=== PATIENT | female | born 1940 | race Caucasian/White ===

== ENCOUNTER 2018-04-09 13:55 | Inpatient (IN) | payer MEDICARE, OTHER ==
[2018-04-09 15:02] LABS: #Basophils 0.1 thou/uL (0.0-0.2); #Eosinphils 0.1 thou/uL (0.0-0.7); #Lymphocytes 2.1 thou/uL (1.20-3.40); #Monocytes 0.8 thou/uL (0.11-0.59); #Neutrophils 9.1 thou/uL (1.40-6.50); %Basophils 1.1 % (0.0-1.0); %Eosinophils 0.5 % (0.0-10.0); %Lymphocytes 17.2 % (21.0-51.0); %Monocytes 6.6 % (0.0-10.0); %Neutrophils 74.6 % (42.0-75.0); Hemoglobin 13.9 g/dL (12.0-16.0); Mean Corpuscular HGB CONC 32.7 g/dL (32.0-36.0); Mean Corpuscular Hemoglobin 30.1 pg (27.0-31.0); Mean Corpuscular Volume 91.8 fL (78.0-98.0); Mean Platelet Volume 6.1 fL (7.4-10.4); Platelet Count 464 thou/uL (130-400); Red Blood Cell (RBC) Count 4.63 mill/uL (4.20-5.40); White Blood Cell (WBC) Count 12.2 thou/uL (4.8-10.8)
[2018-04-09 15:05] LABS: Bacteria/HPF Rare-Few HPF (None Seen); Bilirubin Negative (Negative); Blood, Urine Negative (Negative); Clarity Hazy (Clear); Glucose, Urine (Dipstick) Negative (Negative); Leukocyte Negative (Negative); Nitrite Negative (Negative); Protein, Urine (Dipstick) 30 mg/dL (Neg-Trace); RBC/HPF 0-3 HPF (0-3); Specific Gravity, Urine 1.015 (1.005-1.030); Squamous Epithelial 0-3 HPF (0-3); Urobilinogen 0.2 mg/dL (0.2-1.0); WBC/HPF 0-3 HPF (0-3); pH, Urine 5.5 (5.0-9.0)
[2018-04-09 15:13] LABS: ALT (SGPT) 19 U/L (8-55); AST (SGOT) 18 U/L (5-34); Albumin 4.4 g/dL (3.4-4.8); Alkaline Phosphatase 62 U/L (40-150); Anion Gap 17 mmol/L (10-20); BUN (Urea Nitrogen) 9 mg/dL (9.8-20.1); Bilirubin, Total 0.5 mg/dL (0.2-1.2); Calc. Creatinine Clearance 0 mL/min (70-130); Calcium 9.6 mg/dL (7.8-10.44); Carbon Dioxide 26 mmol/L (23-31); Chloride 98 mmol/L (98-107); Estimated GFR-MDRD 62; Globulin 2.9 g/dL (2.4-3.5); Glucose 188 mg/dL (83-110); Potassium 3.6 mmol/L (3.5-5.1); Protein, Total 7.3 g/dL (6.0-8.3); Sodium 137 mmol/L (136-145)
--- NOTE | 2018-04-09 15:23 | CT ---
CT OF BRAIN PERFORMED WITHOUT CONTRAST ENHANCEMENT: Date: 04/09/18 HISTORY: Altered mental status. COMPARISON: 04/28/11 exam. FINDINGS: There is generalized ventricular and sulcal prominence with decreased attenuation to the periventricu lar white matter consistent with some chronic white matter change. No signs for intracerebral hemorrh age or extra-axial fluid collections. Mastoid air cells and visualized sinuses are clear. IMPRESSION: No acute intracranial abnormalities. POS: [facility]
--- NOTE | 2018-04-09 15:50 | RAD ---
SINGLE VIEW CHEST: Date: 04/09/18 COMPARISON: 07/15/11. HISTORY: Altered mental status. FINDINGS: Single view of the chest shows normal sized cardiomediastinal silhouette with atherosclerotic calcifi cations in the aorta. There is no evidence of consolidation, mass, or pleural effusion. IMPRESSION: No evidence of acute cardiopulmonary disease. POS: [facility]
[2018-04-09] MEDS ORDERED: Acetaminophen 325 MG TAB ONE (16:07)
[2018-04-09 17:59] VITALS: BMI 17.6
[2018-04-09] MEDS ORDERED: ALPRAZolam 0.25 MG TAB PO PRN (18:44)
[2018-04-09] MEDS: Pravastatin Sodium 20 MG TAB PO SCH (20:43)
[2018-04-09] MEDS: Latanoprost 0.005% Ophth Soln 2.5 ml Bottle EA EYE SCH (20:44)
[2018-04-09] MEDS: Acetaminophen 325 MG TAB PO PRN (22:29)
[2018-04-10] MEDS: Acetaminophen 325 MG TAB PO PRN ×2 (05:01→09:57)
[2018-04-10] MEDS: Levothyroxine Sodium 50 MCG TAB PO SCH (05:01)
[2018-04-10] MEDS: Amlodipine 5 MG TAB PO SCH (08:03)
[2018-04-10] MEDS: COMPLETE MULTIVITAMIN PO SCH (08:04)
[2018-04-10] MEDS: SLO NIACIN 500 MG PO SCH (08:04)
[2018-04-10] MEDS: I CAPS PO SCH (08:04)
[2018-04-10] MEDS: Timolol 0.5% Ophth Soln 5 ml Bottle EA EYE SCH (08:09)
[2018-04-10] MEDS ORDERED: Loratadine 10 MG TAB PO SCH ×2 (10:00→13:00)
[2018-04-10] MEDS: Pravastatin Sodium 20 MG TAB PO SCH (20:02)
[2018-04-10] MEDS: traZODone HCl 50 MG TAB PO SCH (20:03)
[2018-04-10] MEDS: Latanoprost 0.005% Ophth Soln 2.5 ml Bottle EA EYE SCH (20:06)
--- NOTE | 2018-04-11 02:12 | HP ---
PRIMARY CARE PHYSICIAN: Alvina Bob MD REASON FOR ADMISSION: Altered mental status, worsening dementia, unsafe living condition. HISTORY OF PRESENT ILLNESS AND HOSPITAL COURSE: Ms. Thompson is an 78-year-old female with significant history of hypertension, mixed lipidemia, hypothyroidism, history of stroke, anxiety, and mild cognitive impairment with memory loss. Son reports that the patient has been having confusion notably at nighttime. The patient lives by herself in [place]. She resides in the same house for a total of 20 years. She has a significant support system from her older sisters and other friends nearby. The patient has been living independently for more than 10 years since her spouse . Son noticed that since the patient has had stroke in May 2011, memory has gradually been worsening per son. Reports forgetfulness on and off without significant behavioral disturbances nor complications. Her older sister, Rhonda Puentes who lives nearby is the patient's main support system at the present since their oldest sister had . Ms Puentes drives her to the clinic and reminds of her medications every now and then. Ms Puentes had a recent fall at home and she sustained a fracture requiring repair. Ms Puentes had underwent surgery. Ms Puentes is currently in skilled rehab in [place]. Since the sister has been in the hospital, the patient has been calling the son mostly at night, panicky, crying, and with some confusion. After reassurance, the patient does okay, relaxes, and able to sleep well. However, lately for the past week or so, the patient has been doing it more frequently and has been calling the son more frequently almost every night. The son brought the patient in the clinic a couple of days ago for further evaluation of dementia. On her last clinic visit on 04/05/2018, the patient's MMSE showed 26/30. Further neuro eval was offered but son opted out as he lives out of town and has no time to dedicate on this. Son requested for a trial of medical therapy instead. Son reported that he is trying to start fixing the patient's resources to be able apply for possible placement. Patient was started on Namenda 5 mg p.o. daily. The patient has started the new medication and was only on her first 2 doses, when the patient called back her son, Cesar last night, very confused. The son reports that patient was again very confused, fearful,panicky and crying The patient reports that she just got out of bed in the middle of the night to go potty, but then could not find her way going back to her bedroom. Again, the patient lives in the same place of residence for the last 20 years and never had a problem. Son drove back to [place] and sent patient to [place] ER for further evaluation. From the ER, CT scan was unremarkable. Chest x-ray has no acute cardiopulmonary process. She has a mild leukocytosis of 12.2 with platelet counts of 464. BUN 9, creatinine 0.88, and glucose 188. Troponin less than 0.10.TSH 3.01. Albumin 4.4. Urine, protein high and ketones high, but negative microscopic hematuria nor pyuria or bacteriuria. The patient was very paranoid to go back home by herself due to confusion. Son will not be able to provide 24/7 care for the patient, thus decided for possible prison placement. The patient was admitted for further observation of confusion. She was placed next to her sister's room. Patient is happy about this. Upon admission, the patient reported headache. Otherwise, she has an unremarkable overnight stay. When seen this morning, the patient reports nasal congestion with sinus pressure headache. She states that she cannot tolerate nasal spray. She also reports that she only slept partially last night. She reports that she got up in the middle of the night and could not get back to sleep. Otherwise, nursing staff reports no behavioral disturbances noted. Of note, the patient has history of anxiety and she was previously on anxiolytic. She had a prescription of Xanax, but she never used it at all because she is so confused of her medicine and could not tell which one that needs to be taken for such reason. PAST MEDICAL HISTORY: Hypertension, hyperlipidemia, hypothyroidism, intracerebral bleed in May 2011, glaucoma, macular degeneration, vitamin D deficiency, diverticulitis, stable lung nodule, anxiety, and allergic rhinitis. ALLERGIES: NKDA. PAST SURGICAL HISTORY: Tonsillectomy in 2; cataract surgery, unknown date; hospitalization for stroke secondary to intracerebral bleed on 04/27/2011, since then, the patient had not had antithrombotic use at all. SOCIAL HISTORY: The patient is the youngest of 5 sisters , lives by herself in [facility], again with good support system from friends and spiritism mates and her main regulatory compliance manager is Cesar, the son and her sister , Rhonda Griffiths. FAMILY HISTORY: Alzheimer's in 2 sisters. Mother of cancer, unknown type. Father of cancer, unknown type. CURRENT MEDICATIONS: 1. Levothyroxine 50 mcg p.o. daily. 2. Amlodipine 10 mg p.o. daily. 3. Slo-Niacin 500 mg ER. 4. Pravastatin 40 mg p.o. daily. 5. Tylenol Extra Strength 500 mg p.o. q.6 hours p.r.n. 6. Multivitamins one tablet daily. 7. Latanoprost 0.005% solution, one drop in each eye nightly. 8. Timolol 0.5% ophthalmic solution, one drop in each eye q.a.m. 9. Alprazolam 0.25 mg p.o. q.6 hours p.r.n. REVIEW OF SYSTEMS: GENERAL: The patient denies fever, chills, or malaise. Reports general weakness. No loss of appetite. HEENT: No acute visual changes or hearing changes. Reports sinus pressure headaches and intermittent sneezing and runny nose/nasal congestion. CARDIAC: Denies chest pain, palpitations, syncope, RANKIN, or PND. RESPIRATORY: No shortness of breath, cough, wheezing, pain with breathing, sputum production, chronic cough. GENITOURINARY: No dysuria, hematuria, frequency, or urgency. Reports intermittent incontinence secondary to leakage. MUSCULOSKELETAL: No acute joint pain, swelling, or stiffness. SKIN: No rashes. No lesions. No ulcers. NEUROLOGIC: No new motor or sensory losses or acute loss of coordination. Positive for memory confusion. HEMATOLOGY: Reports easy bruising. No active bleeding. PSYCHIATRIC: Denies suicidal thoughts, plans, ideations, attempts or hallucinations. Reports some sleeping issues, confusion, anxiety. PHYSICAL EXAMINATION: VITAL SIGNS: Blood pressure 133/58, temperature 98.2, pulse 61, respirations 20 ,and O2 saturations 99%. Height 5 feet 6 inches. Weight 108 pounds and 14 ounces. GENERAL: The patient is awake, alert, oriented x2, a little bit off in her date ,answers simple questions with appropriateness, comfortable, not in acute distress. HEENT: Normocephalic and atraumatic. PERRL. Intact EOM. No nystagmus. Nonicteric sclerae. No eye discharge. Positive congestion. Boggy nasal mucosa. No sinus tenderness. Oropharynx is pink. No exudates. Oral mucosa is moist. No oral lesions or ulcers. NECK: Supple. No LAD. Flat JVD. No thyromegaly. No carotid bruit. CHEST: Normal excursion. Clear to auscultation. Nonlabored breathing. CARDIAC: RRR. Normal S1 and S2. No murmurs. ABDOMEN: Flat and soft. Normoactive bowel sounds. Nondistended, nontender. No rebound. No guarding. Negative CVA tenderness bilaterally. EXTREMITIES: Thin. No edema. No cyanosis. No clubbing. NEUROLOGIC: Nonfocal. DTRs 2+. Gait with unsteadiness. Does not use assistive device for ambulation. PSYCHIATRIC: Good eye contact, interactive, appropriate mood and affect. SKIN: Intact. No bruises. No ulcers. ASSESSMENT AND PLAN: 1. Altered mental status/confusion. 2. Worsening dementia. 3. Anxiety. 4. Adult failure to thrive with body mass index of 17. 5. Hypertension. 6. Hypothyroidism. 7. Hyperlipidemia. 8. Glaucoma. 9. Macular degeneration. 10. Allergic rhinitis. 11. Chronic kidney disease, stage 2. 12. Deconditioning and general weakness.. 13. Social issues/possible prison placement 14. History of intracerebral bleed in 2011. The patient is admitted to Med/Surg for further observation of confusion/ altered mental status. At this point, the patient appears to be at baseline mental state. We will continue all her current medications as modified per list. We will start on trazodone 50 mg p.o. nightly p.r.n. To continue Namenda and titrate appropriately for therapeutic dose.Start on oral antihistamine. Patient reports intolerance to nasal spryas. PT and OT evaluation, treat if appropriate. SCD prophylaxis with compression stockings. Refer to dietitian for nutritional supplements. Further recommendations depending on the hospital course. ESTIMATED STAY: Three nights. DISPOSITION: Lengthy discussion with son, Cesar, who acts as the surrogate decision maker for the patient/MPOA. The son reports possible prison as the patient needs constant supervision and reminders. Her son prefers to have either [place] or [facility]. We will refer to social media strategist and coordinate with the family for the appropriate placement. The patient is agreeable to the plan. She admits that she cannot live by herself as she easily gets confused and panicky and could not think right. CODE STATUS: The patient reports DNR. This was confirmed with the son/Cesar by phone discussion today. Job ID: [id number] MTDD
[2018-04-11] MEDS: Levothyroxine Sodium 50 MCG TAB PO SCH (06:01)
[2018-04-11] MEDS: COMPLETE MULTIVITAMIN PO SCH (08:59)
[2018-04-11] MEDS: I CAPS PO SCH (09:00)
[2018-04-11] MEDS: SLO NIACIN 500 MG PO SCH (09:00)
[2018-04-11] MEDS: Loratadine 10 MG TAB PO SCH (09:01)
[2018-04-11] MEDS: Amlodipine 5 MG TAB PO SCH (09:02)
[2018-04-11] MEDS: Timolol 0.5% Ophth Soln 5 ml Bottle EA EYE SCH (09:03)
[2018-04-11] MEDS: Pravastatin Sodium 20 MG TAB PO SCH (20:15)
[2018-04-11] MEDS: Latanoprost 0.005% Ophth Soln 2.5 ml Bottle EA EYE SCH (20:16)
[2018-04-11] MEDS: traZODone HCl 50 MG TAB PO SCH (22:35)
[2018-04-12] MEDS: Levothyroxine Sodium 50 MCG TAB PO SCH (05:27)
[2018-04-12] MEDS: Acetaminophen 325 MG TAB PO PRN (07:26)
[2018-04-12] MEDS: Loratadine 10 MG TAB PO SCH (08:44)
[2018-04-12] MEDS: COMPLETE MULTIVITAMIN PO SCH (08:45)
[2018-04-12] MEDS: Amlodipine 5 MG TAB PO SCH (08:45)
[2018-04-12] MEDS: I CAPS PO SCH (08:46)
[2018-04-12] MEDS: SLO NIACIN 500 MG PO SCH (08:46)
[2018-04-12] MEDS: Timolol 0.5% Ophth Soln 5 ml Bottle EA EYE SCH (08:47)
[2018-04-12] MEDS ORDERED: Mag-Al 1200 mg/1200 mg/30 ML UDCUP PO PRN (09:02)
[2018-04-12] MEDS: Latanoprost 0.005% Ophth Soln 2.5 ml Bottle EA EYE SCH (20:30)
[2018-04-12] MEDS: Pravastatin Sodium 20 MG TAB PO SCH (20:31)
[2018-04-12] MEDS: traZODone HCl 50 MG TAB PO SCH (20:31)
[2018-04-13] MEDS: Levothyroxine Sodium 50 MCG TAB PO SCH (05:45)
[2018-04-13 07:53] VITALS: BP 125/59; TEMP 98.3
[2018-04-13] MEDS: I CAPS PO SCH (08:20)
[2018-04-13] MEDS: SLO NIACIN 500 MG PO SCH (08:20)
[2018-04-13] MEDS: COMPLETE MULTIVITAMIN PO SCH (08:20)
[2018-04-13] MEDS: Loratadine 10 MG TAB PO SCH (08:21)
[2018-04-13] MEDS: Timolol 0.5% Ophth Soln 5 ml Bottle EA EYE SCH (08:21)
[2018-04-13] MEDS: Amlodipine 5 MG TAB PO SCH (08:21)
== END 2018-04-13 10:32 | disposition swing bed (61) | DRG 948 ==
LOC: MADERS 13:55 → MADMS 16:52
PROVIDERS: ADMIT Family Medicine; ATTEND Family Medicine
DX: R41.82 Altered mental status, unspecified (principal); Z68.1 Body mass index [BMI] 19.9 or less, adult; F03.90 Unspecified dementia, unspecified severity, without behavioral disturbance, psychotic disturbance, mood disturbance, and anxiety; Z66 Do not resuscitate; E03.9 Hypothyroidism, unspecified; F41.9 Anxiety disorder, unspecified; H40.9 Unspecified glaucoma; E55.9 Vitamin D deficiency, unspecified; R62.7 Adult failure to thrive; R53.1 Weakness; R53.81 Other malaise; I12.9 Hypertensive chronic kidney disease with stage 1 through stage 4 chronic kidney disease, or unspecified chronic kidney disease; E78.5 Hyperlipidemia, unspecified; H35.30 Unspecified macular degeneration; J30.9 Allergic rhinitis, unspecified; N18.2 Chronic kidney disease, stage 2 (mild); Z86.73 Personal history of transient ischemic attack (TIA), and cerebral infarction without residual deficits; Z90.89 Acquired absence of other organs; Z98.49 Cataract extraction status, unspecified eye
CPT/HCPCS: 51701; 70450; 71045; 80053; 81003; 81015; 84443; 84484; 85025; 87086; A4353

== ENCOUNTER 2018-04-13 10:23 | Inpatient (IN) | payer MEDICARE, OTHER ==
[2018-04-13] MEDS ORDERED: Mag-Al 1200 mg/1200 mg/30 ML UDCUP PO PRN (11:57)
[2018-04-13] MEDS ORDERED: ALPRAZolam 0.25 MG TAB PO SCH (12:00)
[2018-04-13] MEDS: Latanoprost 0.005% Ophth Soln 2.5 ml Bottle EA EYE SCH (21:26)
[2018-04-13] MEDS: Pravastatin Sodium 20 MG TAB PO SCH (21:26)
[2018-04-13] MEDS: traZODone HCl 50 MG TAB PO SCH (21:27)
[2018-04-14] MEDS: Levothyroxine Sodium 50 MCG TAB PO SCH (05:26)
[2018-04-14] MEDS: Amlodipine 5 MG TAB PO SCH (09:01)
[2018-04-14] MEDS: Niacin SR 500 MG CAP PO SCH (09:01)
[2018-04-14] MEDS: Loratadine 10 MG TAB PO SCH (09:02)
[2018-04-14] MEDS: Vit A,C & E/Lutein/Minerals Tablet PO SCH (09:02)
[2018-04-14] MEDS: Timolol 0.5% Ophth Soln 5 ml Bottle EA EYE SCH (09:02)
[2018-04-14] MEDS: Acetaminophen 325 MG TAB PO PRN (09:05)
[2018-04-14] MEDS: Latanoprost 0.005% Ophth Soln 2.5 ml Bottle EA EYE SCH (21:24)
[2018-04-14] MEDS: Pravastatin Sodium 20 MG TAB PO SCH (21:24)
[2018-04-14] MEDS: traZODone HCl 50 MG TAB PO SCH (21:25)
[2018-04-15] MEDS: Levothyroxine Sodium 50 MCG TAB PO SCH (05:22)
[2018-04-15] MEDS: Niacin SR 500 MG CAP PO SCH (08:24)
[2018-04-15] MEDS: Vit A,C & E/Lutein/Minerals Tablet PO SCH (08:24)
[2018-04-15] MEDS: Loratadine 10 MG TAB PO SCH (08:24)
[2018-04-15] MEDS: Amlodipine 5 MG TAB PO SCH (08:24)
[2018-04-15] MEDS: Timolol 0.5% Ophth Soln 5 ml Bottle EA EYE SCH (08:25)
[2018-04-15] MEDS: Pravastatin Sodium 20 MG TAB PO SCH (21:02)
[2018-04-15] MEDS: traZODone HCl 50 MG TAB PO SCH (21:02)
[2018-04-15] MEDS: Latanoprost 0.005% Ophth Soln 2.5 ml Bottle EA EYE SCH (21:04)
[2018-04-16] MEDS: Levothyroxine Sodium 50 MCG TAB PO SCH (06:27)
[2018-04-16] MEDS: Amlodipine 5 MG TAB PO SCH (08:52)
[2018-04-16] MEDS: Vit A,C & E/Lutein/Minerals Tablet PO SCH (08:52)
[2018-04-16] MEDS: Loratadine 10 MG TAB PO SCH (08:52)
[2018-04-16] MEDS: Niacin SR 500 MG CAP PO SCH (08:52)
[2018-04-16] MEDS: Timolol 0.5% Ophth Soln 5 ml Bottle EA EYE SCH (08:53)
[2018-04-16] MEDS: Acetaminophen 325 MG TAB PO PRN ×2 (08:56→13:44)
[2018-04-16] MEDS: Pravastatin Sodium 20 MG TAB PO SCH (20:37)
[2018-04-16] MEDS: traZODone HCl 50 MG TAB PO SCH (20:38)
[2018-04-16] MEDS: Latanoprost 0.005% Ophth Soln 2.5 ml Bottle EA EYE SCH (20:40)
[2018-04-17] MEDS: Acetaminophen 325 MG TAB PO PRN ×2 (01:33→20:36)
[2018-04-17] MEDS: Levothyroxine Sodium 50 MCG TAB PO SCH (05:53)
[2018-04-17] MEDS: Niacin SR 500 MG CAP PO SCH (08:02)
[2018-04-17] MEDS: Amlodipine 5 MG TAB PO SCH (08:02)
[2018-04-17] MEDS: Vit A,C & E/Lutein/Minerals Tablet PO SCH (08:02)
[2018-04-17] MEDS: Loratadine 10 MG TAB PO SCH (08:02)
[2018-04-17] MEDS: Timolol 0.5% Ophth Soln 5 ml Bottle EA EYE SCH (08:03)
[2018-04-17] MEDS: traZODone HCl 50 MG TAB PO SCH (20:36)
[2018-04-17] MEDS: Pravastatin Sodium 20 MG TAB PO SCH (20:36)
[2018-04-17] MEDS: Latanoprost 0.005% Ophth Soln 2.5 ml Bottle EA EYE SCH (20:37)
[2018-04-18] MEDS: Levothyroxine Sodium 50 MCG TAB PO SCH (05:44)
[2018-04-18] MEDS: Amlodipine 5 MG TAB PO SCH (08:13)
[2018-04-18] MEDS: Vit A,C & E/Lutein/Minerals Tablet PO SCH (08:13)
[2018-04-18] MEDS: Loratadine 10 MG TAB PO SCH (08:14)
[2018-04-18] MEDS: Niacin SR 500 MG CAP PO SCH (08:14)
[2018-04-18] MEDS: Timolol 0.5% Ophth Soln 5 ml Bottle EA EYE SCH (08:14)
[2018-04-18] MEDS: Pravastatin Sodium 20 MG TAB PO SCH (20:16)
[2018-04-18] MEDS: traZODone HCl 50 MG TAB PO SCH (20:17)
[2018-04-18] MEDS: Latanoprost 0.005% Ophth Soln 2.5 ml Bottle EA EYE SCH (20:18)
[2018-04-19] MEDS: Levothyroxine Sodium 50 MCG TAB PO SCH (05:22)
[2018-04-19] MEDS: Acetaminophen 325 MG TAB PO PRN ×2 (07:13→19:21)
[2018-04-19] MEDS: Loratadine 10 MG TAB PO SCH (08:38)
[2018-04-19] MEDS: Amlodipine 5 MG TAB PO SCH (08:38)
[2018-04-19] MEDS: Niacin SR 500 MG CAP PO SCH (08:39)
[2018-04-19] MEDS: Vit A,C & E/Lutein/Minerals Tablet PO SCH (08:39)
[2018-04-19] MEDS: Timolol 0.5% Ophth Soln 5 ml Bottle EA EYE SCH (08:40)
[2018-04-19] MEDS ORDERED: Mag-Al Plus 1200 MG/1200 MG/120 MG/30 ML UDCUP PO PRN (10:37)
[2018-04-19] MEDS: ALPRAZolam 0.25 MG TAB PO PRN (10:43)
[2018-04-19] MEDS: Pravastatin Sodium 20 MG TAB PO SCH (20:39)
[2018-04-19] MEDS: traZODone HCl 50 MG TAB PO SCH (20:39)
[2018-04-19] MEDS: Latanoprost 0.005% Ophth Soln 2.5 ml Bottle EA EYE SCH (20:45)
[2018-04-20] MEDS: Vit A,C & E/Lutein/Minerals Tablet PO SCH (09:10)
[2018-04-20] MEDS: Loratadine 10 MG TAB PO SCH (09:10)
[2018-04-20] MEDS: Amlodipine 5 MG TAB PO SCH (09:10)
[2018-04-20] MEDS: Niacin SR 500 MG CAP PO SCH (09:11)
[2018-04-20] MEDS: Timolol 0.5% Ophth Soln 5 ml Bottle EA EYE SCH (09:12)
[2018-04-20] MEDS: Levothyroxine Sodium 50 MCG TAB PO SCH (11:50)
[2018-04-20] MEDS: traZODone HCl 50 MG TAB PO SCH (20:18)
[2018-04-20] MEDS: Pravastatin Sodium 20 MG TAB PO SCH (20:18)
[2018-04-20] MEDS: Latanoprost 0.005% Ophth Soln 2.5 ml Bottle EA EYE SCH (20:20)
[2018-04-21] MEDS: Levothyroxine Sodium 50 MCG TAB PO SCH (05:06)
[2018-04-21] MEDS: Timolol 0.5% Ophth Soln 5 ml Bottle EA EYE SCH (09:06)
[2018-04-21] MEDS: Vit A,C & E/Lutein/Minerals Tablet PO SCH (09:07)
[2018-04-21] MEDS: Niacin SR 500 MG CAP PO SCH (09:07)
[2018-04-21] MEDS: Amlodipine 5 MG TAB PO SCH (09:07)
[2018-04-21] MEDS: Loratadine 10 MG TAB PO SCH (09:07)
[2018-04-21] MEDS: Latanoprost 0.005% Ophth Soln 2.5 ml Bottle EA EYE SCH (21:01)
[2018-04-21] MEDS: traZODone HCl 50 MG TAB PO SCH (21:01)
[2018-04-21] MEDS: Pravastatin Sodium 20 MG TAB PO SCH (21:01)
[2018-04-21] MEDS: ALPRAZolam 0.25 MG TAB PO PRN (23:00)
[2018-04-22] MEDS: Levothyroxine Sodium 50 MCG TAB PO SCH (05:20)
[2018-04-22] MEDS: Timolol 0.5% Ophth Soln 5 ml Bottle EA EYE SCH (08:28)
[2018-04-22] MEDS: Loratadine 10 MG TAB PO SCH (08:29)
[2018-04-22] MEDS: Niacin SR 500 MG CAP PO SCH (08:29)
[2018-04-22] MEDS: Amlodipine 5 MG TAB PO SCH (08:29)
[2018-04-22] MEDS: Vit A,C & E/Lutein/Minerals Tablet PO SCH (08:29)
[2018-04-22] MEDS: Latanoprost 0.005% Ophth Soln 2.5 ml Bottle EA EYE SCH (21:29)
[2018-04-22] MEDS: Pravastatin Sodium 20 MG TAB PO SCH (21:29)
[2018-04-22] MEDS: traZODone HCl 50 MG TAB PO SCH (21:30)
[2018-04-22] MEDS: ALPRAZolam 0.25 MG TAB PO PRN (22:21)
[2018-04-23] MEDS: Levothyroxine Sodium 50 MCG TAB PO SCH (06:25)
[2018-04-23] MEDS: Loratadine 10 MG TAB PO SCH (08:22)
[2018-04-23] MEDS: Niacin SR 500 MG CAP PO SCH (08:22)
[2018-04-23] MEDS: Amlodipine 5 MG TAB PO SCH (08:22)
[2018-04-23] MEDS: Vit A,C & E/Lutein/Minerals Tablet PO SCH (08:22)
[2018-04-23] MEDS: Timolol 0.5% Ophth Soln 5 ml Bottle EA EYE SCH (08:23)
[2018-04-23] MEDS: Pravastatin Sodium 20 MG TAB PO SCH (20:22)
[2018-04-23] MEDS: traZODone HCl 50 MG TAB PO SCH (20:23)
[2018-04-23] MEDS: Latanoprost 0.005% Ophth Soln 2.5 ml Bottle EA EYE SCH (20:25)
[2018-04-24] MEDS: Levothyroxine Sodium 50 MCG TAB PO SCH (05:11)
[2018-04-24] MEDS: Niacin SR 500 MG CAP PO SCH (08:29)
[2018-04-24] MEDS: Loratadine 10 MG TAB PO SCH (08:29)
[2018-04-24] MEDS: Acetaminophen 325 MG TAB PO PRN (08:29)
[2018-04-24] MEDS: Amlodipine 5 MG TAB PO SCH (08:29)
[2018-04-24] MEDS: Vit A,C & E/Lutein/Minerals Tablet PO SCH (08:29)
[2018-04-24] MEDS: Timolol 0.5% Ophth Soln 5 ml Bottle EA EYE SCH (08:30)
[2018-04-24] MEDS: Pravastatin Sodium 20 MG TAB PO SCH (20:27)
[2018-04-24] MEDS: traZODone HCl 50 MG TAB PO SCH (20:28)
[2018-04-24] MEDS: Latanoprost 0.005% Ophth Soln 2.5 ml Bottle EA EYE SCH (20:29)
[2018-04-25] MEDS: Levothyroxine Sodium 50 MCG TAB PO SCH (05:42)
[2018-04-25] MEDS: Acetaminophen 325 MG TAB PO PRN ×2 (05:44→11:59)
[2018-04-25] MEDS: Niacin SR 500 MG CAP PO SCH (08:42)
[2018-04-25] MEDS: Amlodipine 5 MG TAB PO SCH (08:42)
[2018-04-25] MEDS: Vit A,C & E/Lutein/Minerals Tablet PO SCH (08:42)
[2018-04-25] MEDS: Loratadine 10 MG TAB PO SCH (08:43)
[2018-04-25] MEDS: Timolol 0.5% Ophth Soln 5 ml Bottle EA EYE SCH (08:44)
[2018-04-25] MEDS: Latanoprost 0.005% Ophth Soln 2.5 ml Bottle EA EYE SCH (20:46)
[2018-04-25] MEDS: traZODone HCl 50 MG TAB PO SCH (20:47)
[2018-04-25] MEDS: Pravastatin Sodium 20 MG TAB PO SCH (20:47)
[2018-04-26] MEDS: Levothyroxine Sodium 50 MCG TAB PO SCH (05:10)
[2018-04-26] MEDS: Acetaminophen 325 MG TAB PO PRN (05:10)
[2018-04-26] MEDS: Timolol 0.5% Ophth Soln 5 ml Bottle EA EYE SCH (08:48)
[2018-04-26] MEDS: Vit A,C & E/Lutein/Minerals Tablet PO SCH (08:49)
[2018-04-26] MEDS: Amlodipine 5 MG TAB PO SCH (08:49)
[2018-04-26] MEDS: Niacin SR 500 MG CAP PO SCH (08:49)
[2018-04-26] MEDS: Loratadine 10 MG TAB PO SCH (08:50)
[2018-04-26] MEDS: Latanoprost 0.005% Ophth Soln 2.5 ml Bottle EA EYE SCH (20:49)
[2018-04-26] MEDS: traZODone HCl 50 MG TAB PO SCH (20:50)
[2018-04-26] MEDS: Pravastatin Sodium 20 MG TAB PO SCH (20:50)
[2018-04-27] MEDS: Levothyroxine Sodium 50 MCG TAB PO SCH (05:26)
[2018-04-27] MEDS: Acetaminophen 325 MG TAB PO PRN (08:28)
[2018-04-27] MEDS: Vit A,C & E/Lutein/Minerals Tablet PO SCH (08:29)
[2018-04-27] MEDS: Amlodipine 5 MG TAB PO SCH (08:29)
[2018-04-27] MEDS: Niacin SR 500 MG CAP PO SCH (08:29)
[2018-04-27] MEDS: Latanoprost 0.005% Ophth Soln 2.5 ml Bottle EA EYE SCH ×2 (08:29→20:43)
[2018-04-27] MEDS: Loratadine 10 MG TAB PO SCH (08:29)
[2018-04-27] MEDS: Timolol 0.5% Ophth Soln 5 ml Bottle EA EYE SCH (08:30)
[2018-04-27] MEDS: traZODone HCl 50 MG TAB PO SCH (20:43)
[2018-04-27] MEDS: Pravastatin Sodium 20 MG TAB PO SCH (20:43)
[2018-04-27] MEDS: ALPRAZolam 0.25 MG TAB PO PRN (23:07)
[2018-04-28] MEDS: Levothyroxine Sodium 50 MCG TAB PO SCH (05:37)
[2018-04-28] MEDS: Acetaminophen 325 MG TAB PO PRN (08:39)
[2018-04-28] MEDS: Niacin SR 500 MG CAP PO SCH (08:39)
[2018-04-28] MEDS: Amlodipine 5 MG TAB PO SCH (08:39)
[2018-04-28] MEDS: Vit A,C & E/Lutein/Minerals Tablet PO SCH (08:39)
[2018-04-28] MEDS: Loratadine 10 MG TAB PO SCH (08:40)
[2018-04-28] MEDS: Timolol 0.5% Ophth Soln 5 ml Bottle EA EYE SCH (08:40)
[2018-04-28] MEDS: traZODone HCl 50 MG TAB PO SCH (20:13)
[2018-04-28] MEDS: Latanoprost 0.005% Ophth Soln 2.5 ml Bottle EA EYE SCH (20:13)
[2018-04-28] MEDS: Pravastatin Sodium 20 MG TAB PO SCH (20:13)
[2018-04-29] MEDS: Levothyroxine Sodium 50 MCG TAB PO SCH (05:20)
[2018-04-29] MEDS: Loratadine 10 MG TAB PO SCH (08:33)
[2018-04-29] MEDS: Amlodipine 5 MG TAB PO SCH (08:33)
[2018-04-29] MEDS: Vit A,C & E/Lutein/Minerals Tablet PO SCH (08:33)
[2018-04-29] MEDS: Niacin SR 500 MG CAP PO SCH (08:33)
[2018-04-29] MEDS: Timolol 0.5% Ophth Soln 5 ml Bottle EA EYE SCH (08:34)
[2018-04-29 19:29] VITALS: BMI 16.3
[2018-04-29] MEDS: Pravastatin Sodium 20 MG TAB PO SCH (20:10)
[2018-04-29] MEDS: Montelukast Sodium 10 mg Tablet PO SCH (20:10)
[2018-04-29] MEDS: traZODone HCl 50 MG TAB PO SCH (20:10)
[2018-04-29] MEDS: Latanoprost 0.005% Ophth Soln 2.5 ml Bottle EA EYE SCH (20:11)
[2018-04-29] MEDS: Mirtazapine 15 MG TAB PO SCH (20:12)
[2018-04-30] MEDS: Levothyroxine Sodium 50 MCG TAB PO SCH (05:39)
[2018-04-30] MEDS: Vit A,C & E/Lutein/Minerals Tablet PO SCH (08:21)
[2018-04-30] MEDS: Amlodipine 5 MG TAB PO SCH (08:21)
[2018-04-30] MEDS: Niacin SR 500 MG CAP PO SCH (08:21)
[2018-04-30] MEDS: Loratadine 10 MG TAB PO SCH (08:21)
[2018-04-30] MEDS: Timolol 0.5% Ophth Soln 5 ml Bottle EA EYE SCH (08:22)
[2018-04-30] MEDS: Mirtazapine 15 MG TAB PO SCH (20:32)
[2018-04-30] MEDS: Latanoprost 0.005% Ophth Soln 2.5 ml Bottle EA EYE SCH (20:32)
[2018-04-30] MEDS: Pravastatin Sodium 20 MG TAB PO SCH (20:33)
[2018-04-30] MEDS: Montelukast Sodium 10 mg Tablet PO SCH (20:33)
[2018-04-30] MEDS: traZODone HCl 50 MG TAB PO SCH (20:33)
[2018-05-01] MEDS: Levothyroxine Sodium 50 MCG TAB PO SCH (05:18)
[2018-05-01] MEDS: Niacin SR 500 MG CAP PO SCH (08:16)
[2018-05-01] MEDS: Loratadine 10 MG TAB PO SCH (08:17)
[2018-05-01] MEDS: Vit A,C & E/Lutein/Minerals Tablet PO SCH (08:17)
[2018-05-01] MEDS: Amlodipine 5 MG TAB PO SCH (08:17)
[2018-05-01] MEDS: Timolol 0.5% Ophth Soln 5 ml Bottle EA EYE SCH (08:17)
[2018-05-01] MEDS: Acetaminophen 325 MG TAB PO PRN (08:18)
[2018-05-01] MEDS: Latanoprost 0.005% Ophth Soln 2.5 ml Bottle EA EYE SCH (20:44)
[2018-05-01] MEDS: Mirtazapine 15 MG TAB PO SCH (20:44)
[2018-05-01] MEDS: traZODone HCl 50 MG TAB PO SCH (20:45)
[2018-05-01] MEDS: Montelukast Sodium 10 mg Tablet PO SCH (20:45)
[2018-05-01] MEDS: Pravastatin Sodium 20 MG TAB PO SCH (20:45)
[2018-05-02] MEDS: Levothyroxine Sodium 50 MCG TAB PO SCH (05:13)
[2018-05-02] MEDS: Loratadine 10 MG TAB PO SCH (08:26)
[2018-05-02] MEDS: Amlodipine 5 MG TAB PO SCH (08:26)
[2018-05-02] MEDS: Niacin SR 500 MG CAP PO SCH (08:26)
[2018-05-02] MEDS: Vit A,C & E/Lutein/Minerals Tablet PO SCH (08:26)
[2018-05-02] MEDS: Timolol 0.5% Ophth Soln 5 ml Bottle EA EYE SCH (08:28)
[2018-05-02] MEDS: Acetaminophen 325 MG TAB PO PRN (08:31)
[2018-05-02] MEDS: traZODone HCl 50 MG TAB PO SCH (21:14)
[2018-05-02] MEDS: Mirtazapine 15 MG TAB PO SCH (21:15)
[2018-05-02] MEDS: Latanoprost 0.005% Ophth Soln 2.5 ml Bottle EA EYE SCH (21:15)
[2018-05-02] MEDS: Montelukast Sodium 10 mg Tablet PO SCH (21:16)
[2018-05-02] MEDS: Pravastatin Sodium 20 MG TAB PO SCH (21:19)
[2018-05-03] MEDS: Levothyroxine Sodium 50 MCG TAB PO SCH (05:39)
[2018-05-03 07:34] VITALS: BP 125/56; TEMP 97.2
[2018-05-03] MEDS: Vit A,C & E/Lutein/Minerals Tablet PO SCH (08:43)
[2018-05-03] MEDS: Timolol 0.5% Ophth Soln 5 ml Bottle EA EYE SCH (08:43)
[2018-05-03] MEDS: Niacin SR 500 MG CAP PO SCH (08:43)
[2018-05-03] MEDS: Loratadine 10 MG TAB PO SCH (08:43)
[2018-05-03] MEDS: Amlodipine 5 MG TAB PO SCH (08:43)
--- NOTE | 2018-05-04 21:28 | DIS ---
DATE OF ADMISSION: 04/13/2018 DATE OF DISCHARGE: 05/03/2018 REASON FOR ADMISSION: [facility] for skilled rehab secondary to deconditioning, general weakness, and unsteadiness. FINAL DIAGNOSES: 1. General deconditioning secondary to general weakness. 2. Unsteadiness of gait. 3. Dementia without behavioral disturbances, worsening. 4. Reactive confusion, controlled. 5. Hypertension. 6. Hypothyroidism. 7. Dyslipidemia. 8. Glaucoma. 9. Macular degeneration. 10. Allergic rhinitis. 11. Chronic kidney disease, stage 2. 12. History of intracerebral bleed in 2011. DISPOSITION: [facility]. CONDITION ON DISCHARGE: Stable. DIET: Regular. ACTIVITY: At risk for fall, may use rolling walker at all times. Notify Dr. Bob once admitted at [facility] for further orders. HOME MEDICATIONS: 1. Acetaminophen 650 mg p.o. q.4 hours p.r.n. 2. Alprazolam 0.25 mg p.o. q.6 hours p.r.n. 3. Amlodipine 10 mg p.o. daily. 4. Latanoprost 1 drop in each eye q.p.m. 5. Levothyroxine 50 mcg p.o. q.a.m. 6. Loratadine 10 mg p.o. daily. 7. Magnesium hydroxide/simethicone p.o. q.6 hours p.r.n. for indigestion. 8. Memantine 5 mg p.o. daily. 9. Mirtazapine 7.5 mg p.o. at bedtime. 10. Pravastatin 40 mg p.o. at bedtime. 11. Multivitamins 1 tablet p.o. daily. 12. Trazodone 25 mg p.o. at bedtime. 13. Timolol 1 drop in each eye q.a.m. 14. Ensure Enlive p.o. t.i.d. p.r.n. HISTORY OF THE PRESENT ILLNESS AND HOSPITAL COURSE: Ms. Thompson is a very pleasant 78-year-old female with history of hypertension, dyslipidemia , history of intracerebral bleed in 2011, and hypothyroidism. She lives by herself. She has significant support system in the community including her elder sister, who constantly supervises the patient with all her medical needs including her medication supervision. Her sister drives her to the clinic and congregational. The patient has been having intermittent confusion lately. She has the only son, Cesar who lives out of town. Above symptoms of poor memory,anxiety and confusion were notably worsened since her older sister has been hospitalized lately. The patient was reported by the son that she wakes up in the middle of the night crying, very anxious because she could not find her way when she gets up, going to the bathroom and could not get back to her bedroom. Of note, the patient lives in the same house for 25 years per son. Above symptoms have been recurrent and son brought the patient to the clinic for dementia evaluation. She was started on Namenda at that time, but a couple of days after starting the medication, the patient's confusion appears to be persistent, and per son, progressively worsening, thus the patient was sent to the ER for further eval on 04/09/2018. Initial evaluation in the ER including brain CT, chest x-ray, and other labs were unremarkable. Given the home situation of the patient and her worsening memory/dementia associated with anxiety, insomnia, and questionable depression secondary to recent change in her life, the patient was admitted and observed in [facility] for the purpose of fci placement. The patient's medications in the hospital were adjusted. She was started on trazodone for insomnia and anxiolytic p.r.n. The patient did well in a controlled environment. She did better. She was motivated more when she learns that her elder sister is also in the same hospital, doing rehab. The patient was noted to be generally weak with unsteadiness of her gait during observation, thus after 3 nights of stay in [facility], the patient was transferred to [facility] as she deemed to benefit further for skilled rehab. The patient did well with rehab, but during her rehab course, she was noted to have gradual weight loss. She was noted to be very picky eater. She refuses a lot of her meals, but prefers to eat mostly cereal and milk and crackers that she used to eat at home. There were several discussions with the dietitian along with the patient and her son, Cesar with regard to her diet. She was also started on Remeron as there were noted depressive symptoms since she realized that she was not going to go back home and her sister may be discharged anytime soon from the hospital. Her discharge weight was 110 pounds as of 05/01/2018 measurement. The patient made a remarkable improvement overall with her functional status prior to discharge. She was walking 600 feet using rolling walker. She was also noted to have gait training without use of assistive device prior to discharge. Per therapist, she remains to be slow, but steady with her balance prior to discharge. So, on 05/03/2018, the patient was discharged to [facility] per family's request, and she was deemed not able to take care of herself at home alone. CODE STATUS: DNR based on the patient's wishes and confirmation of the patient' s son, Cesar, who acts as the surrogate decision maker for the patient. VITAL SIGNS: Prior to discharge; blood pressure 125/56, pulse 67, temperature 97.2, respirations 18, O2 saturations 97% on room air. Weight 110 pounds, height 5 feet 6 inches. Job ID: [id number] MTDD
== END 2018-05-03 16:27 | DRG 948 ==
LOC: MADMS 10:34
PROVIDERS: ADMIT Family Medicine; ATTEND Family Medicine
DX: R53.1 Weakness (principal); Z68.1 Body mass index [BMI] 19.9 or less, adult; R26.81 Unsteadiness on feet; F03.90 Unspecified dementia, unspecified severity, without behavioral disturbance, psychotic disturbance, mood disturbance, and anxiety; I12.9 Hypertensive chronic kidney disease with stage 1 through stage 4 chronic kidney disease, or unspecified chronic kidney disease; N18.2 Chronic kidney disease, stage 2 (mild); Z66 Do not resuscitate; F44.89 Other dissociative and conversion disorders; E03.9 Hypothyroidism, unspecified; E78.2 Mixed hyperlipidemia; H40.9 Unspecified glaucoma; H35.30 Unspecified macular degeneration; J30.9 Allergic rhinitis, unspecified; F41.9 Anxiety disorder, unspecified; G47.00 Insomnia, unspecified; R63.4 Abnormal weight loss; Z86.73 Personal history of transient ischemic attack (TIA), and cerebral infarction without residual deficits; Z79.899 Other long term (current) drug therapy

== ENCOUNTER 2018-10-04 00:18 | Emergency (ER) | payer MEDICARE, OTHER ==
[2018-10-04 01:09] LABS: #Basophils 0.1 thou/uL (0.0-0.2); #Eosinphils 0.4 thou/uL (0.0-0.7); #Monocytes 0.8 thou/uL (0.11-0.59); #Neutrophils 8.2 thou/uL (1.40-6.50); %Basophils 1.1 % (0.0-1.0); %Eosinophils 3.7 % (0.0-10.0); %Lymphocytes 17.3 % (21.0-51.0); %Neutrophils 70.9 % (42.0-75.0); Hemoglobin 12.2 g/dL (12.0-16.0); Mean Corpuscular HGB CONC 33.4 g/dL (32.0-36.0); Mean Corpuscular Hemoglobin 30.3 pg (27.0-31.0); Mean Corpuscular Volume 90.8 fL (78.0-98.0); Mean Platelet Volume 6.3 fL (7.4-10.4); Platelet Count 232 thou/uL (130-400); RBC Distribution Width 12.4 % (11.5-14.5); Red Blood Cell (RBC) Count 4.04 mill/uL (4.20-5.40); White Blood Cell (WBC) Count 11.5 thou/uL (4.8-10.8)
[2018-10-04] MEDS ORDERED: Ketorolac Tromethamine 30 MG/ML VIAL ONE (01:13)
[2018-10-04] MEDS ORDERED: Sodium Chloride 0.9% 500 ML ONE (01:13)
[2018-10-04] MEDS ORDERED: Metoclopramide HCl 10 MG/2 ML VIAL ONE (01:13)
[2018-10-04 01:27] LABS: ALT (SGPT) 16 U/L (8-55); AST (SGOT) 16 U/L (5-34); Albumin 4.2 g/dL (3.4-4.8); Alkaline Phosphatase 59 U/L (40-150); Anion Gap 14 mmol/L (10-20); BUN (Urea Nitrogen) 17 mg/dL (9.8-20.1); Bilirubin, Total 0.4 mg/dL (0.2-1.2); Calc. Creatinine Clearance 0 mL/min (70-130); Calcium 9.2 mg/dL (7.8-10.44); Carbon Dioxide 28 mmol/L (23-31); Chloride 102 mmol/L (98-107); Estimated GFR-MDRD 59; Globulin 2.8 g/dL (2.4-3.5); Glucose 140 mg/dL (83-110); Lipase 59 U/L (8-78); Potassium 3.3 mmol/L (3.5-5.1); Sodium 141 mmol/L (136-145)
--- NOTE | 2018-10-04 06:25 | CT ---
CT BRAIN WITHOUT CONTRAST: INDICATIONS: History of headache. COMPARISON: 04/09/2018 FINDINGS: There is mild generalized cerebral atrophy. There is moderate chronic small vessel white matter isch emic change, which is stable to the prior exam. No acute infarct, hemorrhage, or hydrocephalus is ev ident. The skull and extracranial soft tissues appear within normal limits. IMPRESSION: No acute intracranial abnormality. POS: [facility]
--- NOTE | 2018-10-04 06:30 | CT ---
CT ABDOMEN AND PELVIS WITHOUT IV CONTRAST: INDICATIONS: History of nausea, vomiting, and dizziness. COMPARISON: Prior CT thorax dated 06/17/2010. FINDINGS: There is reticular nodularity seen within the right middle lobe and lingula, suspicious for bronchiec tasis with mucus plugging. This is slightly more pronounced than seen on the comparison CT examinati on. There is a small hiatal hernia. The visualized unopacified liver, gallbladder, pancreas, adrenal glands, and spleen appear within nor mal limits. No definite renal or ureteral calculus is evident. There is mild aneurysmal dilatation of the distal abdominal aorta, measuring 3 cm. There are scattered diverticula involving the colon. There is moderate amount of retained stool with in the colon. There is a normal appendix seen in the right lower quadrant. The small bowel is ej l in caliber. No free fluid is evident. There is mild to moderate distention of the bladder. There is diffuse osteopenia. There is scattered degenerative and osteoarthritic change. IMPRESSION: 1. Reticular nodularity in the right middle lobe and lingula, suspicious for bronchiectasis and mucu s plugging. This can be seen with MAC type infections. 2. Small hiatal hernia. 3. 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 4. Colonic diverticulosis and moderate amount of retained stool within the colon. 5. Mild to moderate distention of the bladder. POS: [facility]
== END 2018-10-04 02:38 | disposition home or self-care (01) ==
LOC: MADERS 00:18
DX: R11.2 Nausea with vomiting, unspecified (principal); R51 Headache; E03.9 Hypothyroidism, unspecified; E78.5 Hyperlipidemia, unspecified; E78.00 Pure hypercholesterolemia, unspecified; I10 Essential (primary) hypertension; F41.9 Anxiety disorder, unspecified; Z79.899 Other long term (current) drug therapy
CPT/HCPCS: 70450; 74176; 80053; 83605; 83690; 83880; 84484; 85025; 93005; 96374; 96375; J1885; J2765; J7050

== ENCOUNTER 2020-07-13 12:30 | Inpatient (IN) | payer MEDICARE, OTHER ==
[2020-07-13] MEDS ORDERED: diphenhydrAMINE 50 MG/ML VIAL ONE (13:16)
[2020-07-13] MEDS ORDERED: Ketorolac Tromethamine 30 MG/ML VIAL ONE (13:16)
[2020-07-13] MEDS ORDERED: Metoclopramide HCl 10 MG/2 ML VIAL ONE (13:16)
[2020-07-13 13:36] LABS: Hemoglobin 14.1 g/dL (12.0-16.0); Mean Corpuscular HGB CONC 31.1 g/dL (32.0-36.0); Mean Corpuscular Volume 93.1 fL (78.0-98.0); Mean Platelet Volume 6.7 fL (7.4-10.4); Platelet Count 307 thou/uL (130-400); RBC Distribution Width 13.1 % (11.5-14.5); Red Blood Cell (RBC) Count 4.87 mill/uL (4.20-5.40); White Blood Cell (WBC) Count 21.6 thou/uL (4.8-10.8)
[2020-07-13 13:37] LABS: Anisocytosis SLIGHT = 6-15 cells (100X) (0-5/hpf); Band 3 % (5-11); Lymphocytes 7 % (21-51); MDiff Complete? YES; Manual Diff?? YES; Monocytes 2 % (0-10); Neutrophil 87 % (42-75)
[2020-07-13 13:38] LABS: Platelet Morphology Comment Appears Adequate
[2020-07-13 13:42] LABS: ALT (SGPT) 17 U/L (8-55); AST (SGOT) 23 U/L (5-34); Albumin 4.2 g/dL (3.4-4.8); Alkaline Phosphatase 86 U/L (40-110); Anion Gap 17 mmol/L (10-20); BUN (Urea Nitrogen) 10 mg/dL (9.8-20.1); Bilirubin, Total 0.9 mg/dL (0.2-1.2); Calc. Creatinine Clearance 0 mL/min (70-130); Calcium 9.3 mg/dL (7.8-10.44); Carbon Dioxide 27 mmol/L (23-31); Chloride 100 mmol/L (98-107); Globulin 3.6 g/dL (2.4-3.5); Glucose 113 mg/dL (83-110); Potassium 3.8 mmol/L (3.5-5.1); Protein, Total 7.8 g/dL (5.8-8.1); Sodium 140 mmol/L (136-145)
[2020-07-13] MEDS ORDERED: Azithromycin 500 MG VIAL ONE (15:15)
[2020-07-13] MEDS ORDERED: Sodium Chloride 0.9% 250 ML 250 ML ONE (15:15)
[2020-07-13] MEDS ORDERED: Sodium Chloride 0.9% 100 ML ONE (15:15)
[2020-07-13] MEDS ORDERED: ceFOXitin 1 GM VIAL ONE (15:15)
[2020-07-13 16:07] LABS: SARS-CoV-2 NAA Rapid Test Not Detected (NotDetected)
[2020-07-13] MEDS ORDERED: Acetaminophen 325 MG TAB PO PRN (17:05)
[2020-07-13] MEDS ORDERED: Ondansetron ODT 4 MG TAB PO PRN (17:06)
[2020-07-13] MEDS ORDERED: Senokot S 8.6-50 MG TAB PO PRN (17:07)
[2020-07-13 17:12] VITALS: BMI 21.6
[2020-07-13] MEDS: Atorvastatin Calcium 10 MG TAB PO SCH (20:17)
[2020-07-13] MEDS: Montelukast Sodium 10 mg Tablet PO SCH (20:17)
[2020-07-13] MEDS: Mirtazapine 15 MG TAB PO SCH (20:17)
[2020-07-13] MEDS: Latanoprost 0.005% Ophth Soln 2.5 ml Bottle EA EYE SCH (20:17)
[2020-07-14] MEDS: Levothyroxine Sodium 50 MCG TAB PO SCH (05:32)
[2020-07-14 05:48] LABS: #Basophils 0.1 thou/uL (0.0-0.2); #Eosinphils 0.2 thou/uL (0.0-0.7); #Lymphocytes 1.4 thou/uL (1.20-3.40); #Monocytes 1.1 thou/uL (0.11-0.59); #Neutrophils 10.9 thou/uL (1.40-6.50); %Basophils 0.6 % (0.0-1.0); %Eosinophils 1.2 % (0.0-10.0); %Lymphocytes 10.1 % (21.0-51.0); %Monocytes 7.8 % (0.0-10.0); %Neutrophils 80.4 % (42.0-75.0); Hemoglobin 12.4 g/dL (12.0-16.0); Mean Corpuscular HGB CONC 32.6 g/dL (32.0-36.0); Mean Corpuscular Volume 92.1 fL (78.0-98.0); Mean Platelet Volume 6.9 fL (7.4-10.4); Platelet Count 263 thou/uL (130-400); RBC Distribution Width 12.8 % (11.5-14.5); Red Blood Cell (RBC) Count 4.14 mill/uL (4.20-5.40); White Blood Cell (WBC) Count 13.5 thou/uL (4.8-10.8)
[2020-07-14 05:58] LABS: ALT (SGPT) 16 U/L (8-55); AST (SGOT) 22 U/L (5-34); Albumin 3.6 g/dL (3.4-4.8); Alkaline Phosphatase 69 U/L (40-110); Anion Gap 16 mmol/L (10-20); BUN (Urea Nitrogen) 12 mg/dL (9.8-20.1); Bilirubin, Total 0.6 mg/dL (0.2-1.2); Calc. Creatinine Clearance 54 mL/min (70-130); Calcium 8.9 mg/dL (7.8-10.44); Carbon Dioxide 27 mmol/L (23-31); Chloride 103 mmol/L (98-107); Globulin 3.1 g/dL (2.4-3.5); Glucose 87 mg/dL (83-110); Potassium 3.8 mmol/L (3.5-5.1); Protein, Total 6.7 g/dL (5.8-8.1); Sodium 142 mmol/L (136-145)
[2020-07-14] MEDS: Amlodipine 5 MG TAB PO SCH (08:16)
[2020-07-14] MEDS: Vit A,C & E/Lutein/Minerals Tablet PO SCH (08:16)
[2020-07-14] MEDS: Enoxaparin Sodium 40 MG/0.4 ML SYRINGE SC SCH (08:16)
[2020-07-14] MEDS: Timolol 0.5% Ophth Soln 5 ml Bottle EA EYE SCH (08:17)
[2020-07-14] MEDS: Loratadine 10 MG TAB PO SCH (08:17)
[2020-07-14] MEDS ORDERED: Niacin SR 500 MG CAP PO SCH (09:00)
[2020-07-14] MEDS ORDERED: Non-Formulary Item 1 EACH (Multivit-Min/Fa/Lutein/Zeaxant [Icaps Eye Vitamin Multivitamin PO SCH (09:00)
[2020-07-14] MEDS: Benzonatate 100 MG CAP PO PRN ×2 (11:54→20:06)
[2020-07-14] MEDS: cefTRIAXone\\ROCEPHIN 1 GM in Sodium Chloride 0.9% 100 ML IVPB SCH (15:01)
[2020-07-14] MEDS: Azithromycin 500 MG in Sodium Chloride 0.9% 250 ML 250 ML IVPB SCH (16:01)
[2020-07-14] MEDS: Atorvastatin Calcium 10 MG TAB PO SCH (20:04)
[2020-07-14] MEDS: Latanoprost 0.005% Ophth Soln 2.5 ml Bottle EA EYE SCH (20:05)
[2020-07-14] MEDS: Mirtazapine 15 MG TAB PO SCH (20:05)
[2020-07-14] MEDS: Montelukast Sodium 10 mg Tablet PO SCH (20:06)
[2020-07-15] MEDS: Levothyroxine Sodium 50 MCG TAB PO SCH (05:09)
[2020-07-15 05:19] LABS: #Basophils 0.1 thou/uL (0.0-0.2); #Eosinphils 0.4 thou/uL (0.0-0.7); #Lymphocytes 1.9 thou/uL (1.20-3.40); #Monocytes 1.1 thou/uL (0.11-0.59); #Neutrophils 7.3 thou/uL (1.40-6.50); %Basophils 0.8 % (0.0-1.0); %Eosinophils 3.4 % (0.0-10.0); %Monocytes 10.3 % (0.0-10.0); %Neutrophils 67.6 % (42.0-75.0); Hemoglobin 10.8 g/dL (12.0-16.0); Mean Corpuscular HGB CONC 30.9 g/dL (32.0-36.0); Mean Corpuscular Hemoglobin 28.7 pg (27.0-31.0); Mean Corpuscular Volume 92.9 fL (78.0-98.0); Mean Platelet Volume 6.8 fL (7.4-10.4); Platelet Count 249 thou/uL (130-400); RBC Distribution Width 13.1 % (11.5-14.5); Red Blood Cell (RBC) Count 3.77 mill/uL (4.20-5.40); White Blood Cell (WBC) Count 10.7 thou/uL (4.8-10.8)
[2020-07-15] MEDS: Amlodipine 5 MG TAB PO SCH (08:41)
[2020-07-15] MEDS: Vit A,C & E/Lutein/Minerals Tablet PO SCH (08:41)
[2020-07-15] MEDS: Enoxaparin Sodium 40 MG/0.4 ML SYRINGE SC SCH (08:41)
[2020-07-15] MEDS: Benzonatate 100 MG CAP PO PRN ×2 (08:47→20:45)
[2020-07-15] MEDS: Acetaminophen 500 MG TAB PO PRN (08:47)
[2020-07-15] MEDS: Loratadine 10 MG TAB PO SCH (09:05)
[2020-07-15] MEDS: Timolol 0.5% Ophth Soln 5 ml Bottle EA EYE SCH (09:05)
[2020-07-15] MEDS: cefTRIAXone\\ROCEPHIN 1 GM in Sodium Chloride 0.9% 100 ML IVPB SCH (14:37)
[2020-07-15] MEDS: Azithromycin 500 MG in Sodium Chloride 0.9% 250 ML 250 ML IVPB SCH (15:45)
[2020-07-15] MEDS: Mirtazapine 15 MG TAB PO SCH (20:44)
[2020-07-15] MEDS: Atorvastatin Calcium 10 MG TAB PO SCH (20:44)
[2020-07-15] MEDS: Montelukast Sodium 10 mg Tablet PO SCH (20:45)
[2020-07-15] MEDS: Latanoprost 0.005% Ophth Soln 2.5 ml Bottle EA EYE SCH (20:47)
[2020-07-16] MEDS: Levothyroxine Sodium 50 MCG TAB PO SCH (06:05)
[2020-07-16] MEDS: Amlodipine 5 MG TAB PO SCH (09:13)
[2020-07-16] MEDS: Enoxaparin Sodium 40 MG/0.4 ML SYRINGE SC SCH (09:13)
[2020-07-16] MEDS: Loratadine 10 MG TAB PO SCH (09:13)
[2020-07-16] MEDS: Timolol 0.5% Ophth Soln 5 ml Bottle EA EYE SCH (09:21)
[2020-07-16] MEDS: GUAIFENESIN SF SOLN 200 MG/10 ML UDCUP PO PRN (17:41)
[2020-07-16] MEDS: Atorvastatin Calcium 10 MG TAB PO SCH (20:19)
[2020-07-16] MEDS: Mirtazapine 15 MG TAB PO SCH (20:20)
[2020-07-16] MEDS: Latanoprost 0.005% Ophth Soln 2.5 ml Bottle EA EYE SCH (20:20)
[2020-07-16] MEDS: Montelukast Sodium 10 mg Tablet PO SCH (20:20)
[2020-07-16] MEDS ORDERED: Benzonatate 100 MG CAP PO SCH (21:00)
[2020-07-17] MEDS: Acetaminophen 500 MG TAB PO PRN (05:53)
[2020-07-17] MEDS: Levothyroxine Sodium 50 MCG TAB PO SCH (05:53)
[2020-07-17] MEDS: GUAIFENESIN SF SOLN 200 MG/10 ML UDCUP PO PRN (05:54)
[2020-07-17] MEDS: Vit A,C & E/Lutein/Minerals Tablet PO SCH (08:25)
[2020-07-17] MEDS: Loratadine 10 MG TAB PO SCH (08:25)
[2020-07-17] MEDS: Amlodipine 5 MG TAB PO SCH (08:26)
[2020-07-17] MEDS: Enoxaparin Sodium 40 MG/0.4 ML SYRINGE SC SCH (08:26)
[2020-07-17] MEDS: Timolol 0.5% Ophth Soln 5 ml Bottle EA EYE SCH (08:27)
[2020-07-17] MEDS ORDERED: Acetaminophen 500 MG TAB PO SCH (08:30)
[2020-07-17 12:03] VITALS: BP 117/65; TEMP 98
== END 2020-07-17 12:24 | disposition swing bed (61) | DRG 195 ==
LOC: MADERS 12:30 → MADMS 16:09
PROVIDERS: ADMIT Family Medicine; ATTEND Family Medicine
DX: J18.0 Bronchopneumonia, unspecified organism (principal); G30.9 Alzheimer's disease, unspecified; F02.80 Dementia in other diseases classified elsewhere, unspecified severity, without behavioral disturbance, psychotic disturbance, mood disturbance, and anxiety; E03.9 Hypothyroidism, unspecified; Z66 Do not resuscitate; H40.9 Unspecified glaucoma; I13.10 Hypertensive heart and chronic kidney disease without heart failure, with stage 1 through stage 4 chronic kidney disease, or unspecified chronic kidney disease; N18.2 Chronic kidney disease, stage 2 (mild); R91.1 Solitary pulmonary nodule; D64.89 Other specified anemias; F41.9 Anxiety disorder, unspecified; E78.2 Mixed hyperlipidemia; R26.81 Unsteadiness on feet; R09.02 Hypoxemia; Z20.822 Contact with and (suspected) exposure to COVID-19; R53.81 Other malaise; Z90.89 Acquired absence of other organs; Z98.890 Other specified postprocedural states; Z99.81 Dependence on supplemental oxygen; Z86.73 Personal history of transient ischemic attack (TIA), and cerebral infarction without residual deficits
CPT/HCPCS: 0240U; 36415; 71045; 71046; 71250; 80053; 83605; 84484; 85025; 87040; 93005; 96365; 96367; 96375; J0456; J0694; J0696; J1200; J1650; J1885; J2765; J3490; J7050; J7620

== ENCOUNTER 2020-07-17 10:52 | Inpatient (IN) | payer MEDICARE, OTHER ==
[2020-07-17] MEDS ORDERED: Acetaminophen 500 MG TAB PO PRN (13:15)
[2020-07-17] MEDS ORDERED: Senokot S 8.6-50 MG TAB PO PRN (13:15)
[2020-07-17] MEDS: Atorvastatin Calcium 10 MG TAB PO SCH (20:56)
[2020-07-17] MEDS: Benzonatate 100 MG CAP PO SCH (20:56)
[2020-07-17] MEDS: Latanoprost 0.005% Ophth Soln 2.5 ml Bottle EA EYE SCH (20:56)
[2020-07-17] MEDS: Mirtazapine 15 MG TAB PO SCH (20:57)
[2020-07-17] MEDS: Montelukast Sodium 10 mg Tablet PO SCH (20:57)
[2020-07-18] MEDS: Levothyroxine Sodium 50 MCG TAB PO SCH (06:24)
[2020-07-18] MEDS: Timolol 0.5% Ophth Soln 5 ml Bottle EA EYE SCH (08:46)
[2020-07-18] MEDS: Amlodipine 5 MG TAB PO SCH (08:47)
[2020-07-18] MEDS: Vit A,C & E/Lutein/Minerals Tablet PO SCH (08:47)
[2020-07-18] MEDS: Loratadine 10 MG TAB PO SCH (08:47)
[2020-07-18] MEDS: Enoxaparin Sodium 40 MG/0.4 ML SYRINGE SC SCH (08:47)
[2020-07-18] MEDS ORDERED: Acetaminophen 500 MG TAB PO SCH (09:00)
[2020-07-18] MEDS ORDERED: Ondansetron ODT 4 MG TAB PO PRN (12:21)
[2020-07-18] MEDS: Mirtazapine 15 MG TAB PO SCH (20:52)
[2020-07-18] MEDS: Montelukast Sodium 10 mg Tablet PO SCH (20:52)
[2020-07-18] MEDS: Benzonatate 100 MG CAP PO SCH (20:52)
[2020-07-18] MEDS: Atorvastatin Calcium 10 MG TAB PO SCH (20:53)
[2020-07-18] MEDS: Latanoprost 0.005% Ophth Soln 2.5 ml Bottle EA EYE SCH (20:53)
[2020-07-19] MEDS: Acetaminophen 500 MG TAB PO PRN ×4 (00:47→23:20)
[2020-07-19] MEDS: GUAIFENESIN SF SOLN 200 MG/10 ML UDCUP PO PRN ×2 (00:52→08:49)
[2020-07-19] MEDS: Levothyroxine Sodium 50 MCG TAB PO SCH (05:30)
[2020-07-19] MEDS: Timolol 0.5% Ophth Soln 5 ml Bottle EA EYE SCH (08:50)
[2020-07-19] MEDS: Amlodipine 5 MG TAB PO SCH (08:50)
[2020-07-19] MEDS: Enoxaparin Sodium 40 MG/0.4 ML SYRINGE SC SCH (08:50)
[2020-07-19] MEDS: Vit A,C & E/Lutein/Minerals Tablet PO SCH (08:50)
[2020-07-19] MEDS: Loratadine 10 MG TAB PO SCH (08:50)
[2020-07-19] MEDS ORDERED: Fluticasone Propionate Nasal Spray 16 gm Bottle NASAL SCH (13:15)
[2020-07-19] MEDS: Atorvastatin Calcium 10 MG TAB PO SCH (21:04)
[2020-07-19] MEDS: Montelukast Sodium 10 mg Tablet PO SCH (21:04)
[2020-07-19] MEDS: Benzonatate 100 MG CAP PO SCH (21:04)
[2020-07-19] MEDS: Latanoprost 0.005% Ophth Soln 2.5 ml Bottle EA EYE SCH (21:06)
[2020-07-19] MEDS: Mirtazapine 15 MG TAB PO SCH (21:06)
[2020-07-19] MEDS: Fluticasone Propionate Nasal Spray 16 gm Bottle NASAL SCH (21:07)
[2020-07-20] MEDS: Levothyroxine Sodium 50 MCG TAB PO SCH (04:59)
[2020-07-20] MEDS: Acetaminophen 500 MG TAB PO PRN ×2 (04:59→10:05)
[2020-07-20] MEDS: Fluticasone Propionate Nasal Spray 16 gm Bottle NASAL SCH ×2 (10:02→20:26)
[2020-07-20] MEDS: Vit A,C & E/Lutein/Minerals Tablet PO SCH (10:03)
[2020-07-20] MEDS: Loratadine 10 MG TAB PO SCH (10:03)
[2020-07-20] MEDS: Amlodipine 5 MG TAB PO SCH (10:03)
[2020-07-20] MEDS: Enoxaparin Sodium 40 MG/0.4 ML SYRINGE SC SCH (10:04)
[2020-07-20] MEDS: Timolol 0.5% Ophth Soln 5 ml Bottle EA EYE SCH (10:04)
[2020-07-20] MEDS: Atorvastatin Calcium 10 MG TAB PO SCH (20:24)
[2020-07-20] MEDS: Benzonatate 100 MG CAP PO SCH (20:25)
[2020-07-20] MEDS: Mirtazapine 15 MG TAB PO SCH (20:25)
[2020-07-20] MEDS: Montelukast Sodium 10 mg Tablet PO SCH (20:26)
[2020-07-20] MEDS: Latanoprost 0.005% Ophth Soln 2.5 ml Bottle EA EYE SCH (20:27)
[2020-07-21] MEDS: Levothyroxine Sodium 50 MCG TAB PO SCH (05:31)
[2020-07-21] MEDS: Acetaminophen 500 MG TAB PO PRN ×2 (05:34→10:21)
[2020-07-21] MEDS: Fluticasone Propionate Nasal Spray 16 gm Bottle NASAL SCH ×2 (08:55→20:24)
[2020-07-21] MEDS: Amlodipine 5 MG TAB PO SCH (08:59)
[2020-07-21] MEDS: Timolol 0.5% Ophth Soln 5 ml Bottle EA EYE SCH (08:59)
[2020-07-21] MEDS: Enoxaparin Sodium 40 MG/0.4 ML SYRINGE SC SCH (08:59)
[2020-07-21] MEDS: Vit A,C & E/Lutein/Minerals Tablet PO SCH (09:00)
[2020-07-21] MEDS: Loratadine 10 MG TAB PO SCH (09:00)
[2020-07-21 09:44] VITALS: BMI 21.4
[2020-07-21] MEDS: Benzonatate 100 MG CAP PO SCH (20:23)
[2020-07-21] MEDS: Mirtazapine 15 MG TAB PO SCH (20:23)
[2020-07-21] MEDS: Atorvastatin Calcium 10 MG TAB PO SCH (20:23)
[2020-07-21] MEDS: Montelukast Sodium 10 mg Tablet PO SCH (20:24)
[2020-07-21] MEDS: Latanoprost 0.005% Ophth Soln 2.5 ml Bottle EA EYE SCH (20:24)
[2020-07-22] MEDS: Levothyroxine Sodium 50 MCG TAB PO SCH (05:24)
[2020-07-22] MEDS: Acetaminophen 500 MG TAB PO PRN (05:29)
[2020-07-22] MEDS: Fluticasone Propionate Nasal Spray 16 gm Bottle NASAL SCH ×2 (08:20→20:37)
[2020-07-22] MEDS: Vit A,C & E/Lutein/Minerals Tablet PO SCH (08:21)
[2020-07-22] MEDS: Loratadine 10 MG TAB PO SCH (08:21)
[2020-07-22] MEDS: Enoxaparin Sodium 40 MG/0.4 ML SYRINGE SC SCH (08:21)
[2020-07-22] MEDS: Timolol 0.5% Ophth Soln 5 ml Bottle EA EYE SCH (08:23)
[2020-07-22] MEDS: Amlodipine 5 MG TAB PO SCH ×2 (08:27→09:24)
[2020-07-22] MEDS: Mirtazapine 15 MG TAB PO SCH (20:01)
[2020-07-22] MEDS: Latanoprost 0.005% Ophth Soln 2.5 ml Bottle EA EYE SCH (20:01)
[2020-07-22] MEDS: Oxymetazoline HCl 0.05% (30 ML BOT) NS SCH (20:01)
[2020-07-22] MEDS: Montelukast Sodium 10 mg Tablet PO SCH (20:01)
[2020-07-22] MEDS: Atorvastatin Calcium 10 MG TAB PO SCH (20:01)
[2020-07-22] MEDS: Benzonatate 100 MG CAP PO SCH (20:04)
[2020-07-23] MEDS: Levothyroxine Sodium 50 MCG TAB PO SCH (05:16)
[2020-07-23] MEDS: Vit A,C & E/Lutein/Minerals Tablet PO SCH (08:08)
[2020-07-23] MEDS: Loratadine 10 MG TAB PO SCH (08:08)
[2020-07-23] MEDS: Oxymetazoline HCl 0.05% (30 ML BOT) NS SCH ×2 (08:08→20:40)
[2020-07-23] MEDS: Timolol 0.5% Ophth Soln 5 ml Bottle EA EYE SCH (08:08)
[2020-07-23] MEDS: Enoxaparin Sodium 40 MG/0.4 ML SYRINGE SC SCH (08:09)
[2020-07-23] MEDS: Fluticasone Propionate Nasal Spray 16 gm Bottle NASAL SCH ×2 (08:22→20:39)
[2020-07-23] MEDS: Benzonatate 100 MG CAP PO SCH (20:37)
[2020-07-23] MEDS: Mirtazapine 15 MG TAB PO SCH (20:37)
[2020-07-23] MEDS: Atorvastatin Calcium 10 MG TAB PO SCH (20:37)
[2020-07-23] MEDS: Latanoprost 0.005% Ophth Soln 2.5 ml Bottle EA EYE SCH (20:38)
[2020-07-23] MEDS: Montelukast Sodium 10 mg Tablet PO SCH (20:38)
[2020-07-24] MEDS: Levothyroxine Sodium 50 MCG TAB PO SCH (05:43)
[2020-07-24] MEDS: Enoxaparin Sodium 40 MG/0.4 ML SYRINGE SC SCH (08:54)
[2020-07-24] MEDS: Oxymetazoline HCl 0.05% (30 ML BOT) NS SCH ×2 (08:54→20:32)
[2020-07-24] MEDS: Fluticasone Propionate Nasal Spray 16 gm Bottle NASAL SCH ×2 (08:54→20:32)
[2020-07-24] MEDS: Timolol 0.5% Ophth Soln 5 ml Bottle EA EYE SCH (08:55)
[2020-07-24] MEDS: Loratadine 10 MG TAB PO SCH (08:55)
[2020-07-24] MEDS: Vit A,C & E/Lutein/Minerals Tablet PO SCH (08:55)
[2020-07-24] MEDS: Acetaminophen 500 MG TAB PO PRN (10:02)
[2020-07-24] MEDS: Benzonatate 100 MG CAP PO SCH (20:31)
[2020-07-24] MEDS: Atorvastatin Calcium 10 MG TAB PO SCH (20:31)
[2020-07-24] MEDS: Latanoprost 0.005% Ophth Soln 2.5 ml Bottle EA EYE SCH (20:32)
[2020-07-24] MEDS: Mirtazapine 15 MG TAB PO SCH (20:33)
[2020-07-24] MEDS: Montelukast Sodium 10 mg Tablet PO SCH (20:33)
[2020-07-25] MEDS: Levothyroxine Sodium 50 MCG TAB PO SCH (05:25)
[2020-07-25] MEDS: Acetaminophen 500 MG TAB PO PRN (05:30)
[2020-07-25] MEDS: Enoxaparin Sodium 40 MG/0.4 ML SYRINGE SC SCH (09:40)
[2020-07-25] MEDS: Vit A,C & E/Lutein/Minerals Tablet PO SCH (09:40)
[2020-07-25] MEDS: Timolol 0.5% Ophth Soln 5 ml Bottle EA EYE SCH (09:41)
[2020-07-25] MEDS: Loratadine 10 MG TAB PO SCH (09:41)
[2020-07-25] MEDS: Fluticasone Propionate Nasal Spray 16 gm Bottle NASAL SCH ×2 (09:42→21:22)
[2020-07-25] MEDS: Montelukast Sodium 10 mg Tablet PO SCH (21:21)
[2020-07-25] MEDS: Mirtazapine 15 MG TAB PO SCH (21:21)
[2020-07-25] MEDS: Atorvastatin Calcium 10 MG TAB PO SCH (21:21)
[2020-07-25] MEDS: Benzonatate 100 MG CAP PO SCH (21:21)
[2020-07-25] MEDS: Latanoprost 0.005% Ophth Soln 2.5 ml Bottle EA EYE SCH (21:24)
[2020-07-26] MEDS: Levothyroxine Sodium 50 MCG TAB PO SCH (05:58)
[2020-07-26] MEDS: Fluticasone Propionate Nasal Spray 16 gm Bottle NASAL SCH ×2 (08:34→20:47)
[2020-07-26] MEDS: Timolol 0.5% Ophth Soln 5 ml Bottle EA EYE SCH (08:35)
[2020-07-26] MEDS: Enoxaparin Sodium 40 MG/0.4 ML SYRINGE SC SCH (08:35)
[2020-07-26] MEDS: Loratadine 10 MG TAB PO SCH (08:36)
[2020-07-26] MEDS: Vit A,C & E/Lutein/Minerals Tablet PO SCH (08:36)
[2020-07-26] MEDS: Atorvastatin Calcium 10 MG TAB PO SCH (20:45)
[2020-07-26] MEDS: Montelukast Sodium 10 mg Tablet PO SCH (20:46)
[2020-07-26] MEDS: Benzonatate 100 MG CAP PO SCH (20:46)
[2020-07-26] MEDS: Mirtazapine 15 MG TAB PO SCH (20:46)
[2020-07-26] MEDS: Latanoprost 0.005% Ophth Soln 2.5 ml Bottle EA EYE SCH (20:48)
[2020-07-27] MEDS: Levothyroxine Sodium 50 MCG TAB PO SCH (05:24)
[2020-07-27] MEDS: Loratadine 10 MG TAB PO SCH (08:17)
[2020-07-27] MEDS: Vit A,C & E/Lutein/Minerals Tablet PO SCH (08:17)
[2020-07-27] MEDS: Enoxaparin Sodium 40 MG/0.4 ML SYRINGE SC SCH (08:17)
[2020-07-27] MEDS: Acetaminophen 500 MG TAB PO PRN (08:18)
[2020-07-27] MEDS: Timolol 0.5% Ophth Soln 5 ml Bottle EA EYE SCH (08:19)
[2020-07-27] MEDS: Fluticasone Propionate Nasal Spray 16 gm Bottle NASAL SCH ×2 (08:19→20:42)
[2020-07-27] MEDS: Atorvastatin Calcium 10 MG TAB PO SCH (20:42)
[2020-07-27] MEDS: Benzonatate 100 MG CAP PO SCH (20:42)
[2020-07-27] MEDS: Latanoprost 0.005% Ophth Soln 2.5 ml Bottle EA EYE SCH (20:42)
[2020-07-27] MEDS: Mirtazapine 15 MG TAB PO SCH (20:43)
[2020-07-27] MEDS: Montelukast Sodium 10 mg Tablet PO SCH (20:43)
[2020-07-28] MEDS: Levothyroxine Sodium 50 MCG TAB PO SCH (05:26)
[2020-07-28] MEDS: Enoxaparin Sodium 40 MG/0.4 ML SYRINGE SC SCH (08:34)
[2020-07-28] MEDS: Acetaminophen 500 MG TAB PO PRN (08:34)
[2020-07-28] MEDS: Fluticasone Propionate Nasal Spray 16 gm Bottle NASAL SCH ×2 (08:34→20:26)
[2020-07-28] MEDS: Timolol 0.5% Ophth Soln 5 ml Bottle EA EYE SCH (08:34)
[2020-07-28] MEDS: Vit A,C & E/Lutein/Minerals Tablet PO SCH (08:35)
[2020-07-28] MEDS: Loratadine 10 MG TAB PO SCH (08:35)
[2020-07-28] MEDS: Benzonatate 100 MG CAP PO SCH (20:26)
[2020-07-28] MEDS: Latanoprost 0.005% Ophth Soln 2.5 ml Bottle EA EYE SCH (20:26)
[2020-07-28] MEDS: Atorvastatin Calcium 10 MG TAB PO SCH (20:26)
[2020-07-28] MEDS: Montelukast Sodium 10 mg Tablet PO SCH (20:27)
[2020-07-28] MEDS: Mirtazapine 15 MG TAB PO SCH (20:27)
[2020-07-29] MEDS: Levothyroxine Sodium 50 MCG TAB PO SCH (05:32)
[2020-07-29] MEDS: Vit A,C & E/Lutein/Minerals Tablet PO SCH (08:18)
[2020-07-29] MEDS: Loratadine 10 MG TAB PO SCH (08:18)
[2020-07-29] MEDS: Enoxaparin Sodium 40 MG/0.4 ML SYRINGE SC SCH (08:18)
[2020-07-29] MEDS: Timolol 0.5% Ophth Soln 5 ml Bottle EA EYE SCH (08:19)
[2020-07-29] MEDS: Fluticasone Propionate Nasal Spray 16 gm Bottle NASAL SCH ×2 (08:19→20:35)
[2020-07-29] MEDS: Atorvastatin Calcium 10 MG TAB PO SCH (20:34)
[2020-07-29] MEDS: Latanoprost 0.005% Ophth Soln 2.5 ml Bottle EA EYE SCH (20:35)
[2020-07-29] MEDS: Mirtazapine 15 MG TAB PO SCH (20:35)
[2020-07-29] MEDS: Benzonatate 100 MG CAP PO SCH (20:35)
[2020-07-29] MEDS: Montelukast Sodium 10 mg Tablet PO SCH (20:35)
[2020-07-30] MEDS: Levothyroxine Sodium 50 MCG TAB PO SCH (05:26)
[2020-07-30] MEDS: Enoxaparin Sodium 40 MG/0.4 ML SYRINGE SC SCH (08:53)
[2020-07-30] MEDS: Fluticasone Propionate Nasal Spray 16 gm Bottle NASAL SCH (08:54)
[2020-07-30] MEDS: Timolol 0.5% Ophth Soln 5 ml Bottle EA EYE SCH (08:54)
[2020-07-30] MEDS: Loratadine 10 MG TAB PO SCH (08:54)
[2020-07-30] MEDS: Vit A,C & E/Lutein/Minerals Tablet PO SCH (08:55)
[2020-07-30 14:04] VITALS: BP 142/71; TEMP 98.6
== END 2020-07-30 14:50 | disposition home or self-care (01) | DRG 947 ==
LOC: MADMS 12:28
PROVIDERS: ADMIT Family Medicine; ATTEND Family Medicine
DX: R53.81 Other malaise (principal); J18.9 Pneumonia, unspecified organism; K52.1 Toxic gastroenteritis and colitis; R91.1 Solitary pulmonary nodule; J30.9 Allergic rhinitis, unspecified; G30.9 Alzheimer's disease, unspecified; F02.80 Dementia in other diseases classified elsewhere, unspecified severity, without behavioral disturbance, psychotic disturbance, mood disturbance, and anxiety; E03.9 Hypothyroidism, unspecified; E78.2 Mixed hyperlipidemia; I13.10 Hypertensive heart and chronic kidney disease without heart failure, with stage 1 through stage 4 chronic kidney disease, or unspecified chronic kidney disease; N18.2 Chronic kidney disease, stage 2 (mild); T36.95XA Adverse effect of unspecified systemic antibiotic, initial encounter; R51.9 Headache, unspecified
CPT/HCPCS: 71046; J1650; J7620; Q0162

== ENCOUNTER 2020-09-22 10:14 | Outpatient (CLI) | payer MEDICARE, OTHER | END 2020-09-22 10:15 | disposition home or self-care (01) | LOC: MADLAB 10:14 → MADCT 10:15 | PROVIDERS: ATTEND Family Medicine | DX: R91.8 Other nonspecific abnormal finding of lung field (principal); Z87.01 Personal history of pneumonia (recurrent) | CPT/HCPCS: 71250 ==

== ENCOUNTER 2023-09-19 10:57 | Emergency (ER) | payer MEDICARE, OTHER ==
[2023-09-19 12:22] LABS: Bilirubin Small (Negative); Blood, Urine Negative (Negative); Clarity Clear (Clear); Glucose, Urine (Dipstick) Negative (Negative); Ketone, Urine Negative (Negative); Leukocyte Negative (Negative); Nitrite Negative (Negative); Protein, Urine (Dipstick) Trace mg/dL (Neg-Trace); Specific Gravity, Urine 1.025 (1.005-1.030); pH, Urine 5.5 (5.0-9.0)
[2023-09-19 12:25] LABS: #Basophils 0.1 thou/uL (0.0-0.2); #Eosinphils 0.2 thou/uL (0.0-0.7); #Monocytes 0.7 thou/uL (0.11-0.59); #Neutrophils 10.4 thou/uL (1.40-6.50); %Eosinophils 1.3 % (0.0-10.0); %Lymphocytes 15.1 % (21.0-51.0); %Monocytes 5.4 % (0.0-10.0); %Neutrophils 77.3 % (42.0-75.0); Hematocrit 43.5 % (36.0-47.0); Hemoglobin 12.8 g/dL (12.0-16.0); Mean Corpuscular HGB CONC 29.4 g/dL (32.0-36.0); Mean Corpuscular Hemoglobin 27.1 pg (27.0-31.0); Mean Corpuscular Volume 92.3 fl (78.0-98.0); Mean Platelet Volume 5.5 fL (7.4-10.4); Platelet Count 404 10x3/uL (130-400); Prothrombin Time 13.5 sec (12.0-14.7); RBC Distribution Width 14.5 % (11.5-14.5); Red Blood Cell (RBC) Count 4.72 mill/uL (4.20-5.40); White Blood Cell (WBC) Count 13.5 10x3/uL (4.8-10.8)
[2023-09-19 12:26] LABS: PTT 29.7 sec (22.9-36.1)
[2023-09-19 12:34] LABS: CAUTI Indications for Culture Alt mental st,lethar; RBC/HPF 0-3 HPF (0-3); WBC/HPF 0-3 HPF (0-3)
[2023-09-19 12:35] LABS: Bacteria/HPF Rare-Few HPF (None Seen)
[2023-09-19 12:36] LABS: Urine Culture Reflex No No
[2023-09-19 12:36] LABS: ALT (SGPT) 13 U/L (8-55); AST (SGOT) 20 U/L (5-34); Albumin 3.5 g/dL (3.4-4.8); Alkaline Phosphatase 40 U/L (40-110); Anion Gap 14 mmol/L (10-20); BUN (Urea Nitrogen) 14 mg/dL (9.8-20.1); Bilirubin, Total 0.3 mg/dL (0.2-1.2); Calc. Creatinine Clearance 0 mL/min (70-130); Calcium 9.9 mg/dL (7.8-10.44); Carbon Dioxide 25 mmol/L (23-31); Chloride 108 mmol/L (98-107); Estimated GFR 52; Globulin 3.8 g/dL (2.4-3.5); Glucose 93 mg/dL (83-110); Protein, Total 7.3 g/dL (5.8-8.1); Sodium 143 mmol/L (136-145)
[2023-09-19 12:38] LABS: Troponin I Less than 0.010 ng/mL (< 0.028)
[2023-09-19] MEDS ORDERED: hydrALAZINE 20 MG/ML VIAL ONE (13:17)
[2023-09-19] MEDS ORDERED: Labetalol HCl 100 MG/20 ML VIAL ONE (13:57)
[2023-09-19] MEDS ORDERED: niCARdipine 25 MG/10 ML SDV ONE (13:58)
== END 2023-09-19 13:03 | disposition short-term general hospital (02) ==
LOC: MADERS 10:57
DX: S06.360A Traumatic hemorrhage of cerebrum, unspecified, without loss of consciousness, initial encounter (principal); E03.9 Hypothyroidism, unspecified; I10 Essential (primary) hypertension; Z79.899 Other long term (current) drug therapy; W22.09XA Striking against other stationary object, initial encounter
CPT/HCPCS: 70450; 71045; 80053; 81001; 84484; 85025; 85610; 85730; 93005; J0360; 96374; 96375; 96376

== ENCOUNTER 2024-02-07 17:29 | Emergency (ER) | payer MEDICARE, MEDICAID ==
[2024-02-07] MEDS ORDERED: Acetaminophen 500 MG TAB ONE (18:07)
[2024-02-07 18:40] LABS: Hematocrit 40.8 % (36.0-47.0); Hemoglobin 12.6 g/dL (12.0-16.0); Mean Corpuscular HGB CONC 30.8 g/dL (32.0-36.0); Mean Corpuscular Hemoglobin 28.3 pg (27.0-31.0); Mean Corpuscular Volume 91.9 fl (78.0-98.0); Mean Platelet Volume 7.1 fL (7.4-10.4); Platelet Count 297 10x3/uL (130-400); RBC Distribution Width 12.2 % (11.5-14.5); Red Blood Cell (RBC) Count 4.44 mill/uL (4.20-5.40); White Blood Cell (WBC) Count 10.5 10x3/uL (4.8-10.8)
[2024-02-07 18:47] LABS: ALT (SGPT) 21 U/L (8-55); AST (SGOT) 29 U/L (5-34); Albumin 3.8 g/dL (3.4-4.8); Alkaline Phosphatase 70 U/L (40-110); Anion Gap 12 mmol/L (10-20); BUN (Urea Nitrogen) 18 mg/dL (9.8-20.1); Bilirubin, Total 0.4 mg/dL (0.2-1.2); Calc. Creatinine Clearance 0 mL/min (70-130); Calcium 9.6 mg/dL (7.8-10.44); Carbon Dioxide 28 mmol/L (23-31); Chloride 103 mmol/L (98-107); Estimated GFR 59; Globulin 3.6 g/dL (2.4-3.5); Glucose 104 mg/dL (83-110); Potassium 4.1 mmol/L (3.5-5.1); Protein, Total 7.4 g/dL (5.8-8.1); Sodium 139 mmol/L (136-145)
[2024-02-07 18:57] LABS: Band 3 % (5-11); MDiff Complete? YES; Manual Diff?? YES; Neutrophil 92 % (42-75)
[2024-02-07] MEDS ORDERED: Oseltamivir 75 MG CAP ONE (18:57)
[2024-02-07 18:58] LABS: Lymphocytes 3 % (21-51); Monocytes 1 % (0-10); Platelet Adequacy Comment Appears Adequate; RBC Morph Comment Within Normal Limits
[2024-02-07 19:35] LABS: Bilirubin Negative (Negative); Blood, Urine Negative (Negative); Clarity Clear (Clear); Glucose, Urine (Dipstick) Negative (Negative); Ketone, Urine 15 mg/dL (Negative); Leukocyte Negative (Negative); Nitrite Negative (Negative); Protein, Urine (Dipstick) 30 mg/dL (Neg-Trace); Specific Gravity, Urine 1.025 (1.005-1.030); Urobilinogen 0.2 mg/dL (Less than 2)
[2024-02-07 19:38] LABS: CAUTI Indications for Culture Pelvic or flank pain; RBC/HPF None Seen HPF (0-3); Squamous Epithelial 0-3 HPF (0-3); WBC/HPF 0-3 HPF (0-3)
[2024-02-07 19:40] LABS: Urine Culture Reflex No No
[2024-02-07] MEDS ORDERED: Sodium Chloride 0.9% 100 ML ONE (19:41)
[2024-02-07] MEDS ORDERED: Cefepime 2 GM VIAL ONE (19:41)
[2024-02-07] MEDS ORDERED: LevoFLOXacin D5W 500 mg (100 mL) BAG ONE (20:53)
[2024-02-07] MEDS ORDERED: Ibuprofen 200 MG TAB ONE (20:53)
[2024-02-07] MEDS ORDERED: Sodium Chloride 0.9% 1,000 ML ONE (20:53)
== END 2024-02-08 01:14 | disposition short-term general hospital (02) ==
LOC: MADERS 17:29
DX: J10.1 Influenza due to other identified influenza virus with other respiratory manifestations (principal); J18.9 Pneumonia, unspecified organism; A41.9 Sepsis, unspecified organism; I10 Essential (primary) hypertension
CPT/HCPCS: 70450; 71045; 72125; 80053; 81001; 83605; 85025; 87040; 87400 ×2; 87426; 93005; J0692; J1956; J7030; 51701; 96365; 96367